=== PATIENT | female | born 1995 | race Two or more races ===

== ENCOUNTER 2024-08-24 20:07 | Emergency (ER) | payer OTHER ==
[~2024-08-24] VITALS: Ht 162.6 cm; Wt 68.0 kg
[2024-08-24 20:12] VITALS: BP 115/72; O2SAT 98
[2024-08-24 22:13] LABS: BASO % 0.2 % (0.1-1.2); EOS # 0.05 (0.04-0.54); EOS % 1.2 % (0.7-7.0); HEMATOCRIT 37.1 % (34.1-44.9); HEMOGLOBIN 12.6 g/dL (11.2-15.7); MEAN CORPUSCULAR HEMOGLOBIN 30.1 pg (25.6-32.2); MONO # 0.49 (0.24-0.82); NEUT # 2.63 (1.56-6.13); NEUT % 64.4 % (34.0-71.1); PLATELET COUNT 298 K/uL (163-369); RED BLOOD COUNT 4.19 M/uL (3.93-5.22); RED CELL DISTRIBUTION WIDTH 13.1 % (11.6-14.4)
[2024-08-24 23:31] LABS: COVID-19 AG NEGATIVE (NEGATIVE)
[2024-08-24 23:33] LABS: INFLUENZA A AG NEGATIVE (NEGATIVE)
== END 2024-08-24 23:58 | disposition home or self-care (01) ==
LOC: ER 20:13
DX: B34.9 Viral infection, unspecified (principal); Z88.8 Allergy status to other drugs, medicaments and biological substances; Z20.822 Contact with and (suspected) exposure to COVID-19